=== PATIENT | female | born 1980 | race Caucasian/White ===

== ENCOUNTER 2016-11-05 19:40 | Emergency (ER) | payer MEDICAID, OTHER ==
--- NOTE | 2016-11-05 20:24 | EDM.PDOC ---
ED HPI GI/ABDOMINAL - General Chief Complaint: Abdominal Pain Stated Complaint: R SIDE PAIN/CHEST/VOMITING Time Seen by Provider: 11/05/16 20:24 Source of Information: Reports: Patient - History of Present Illness INITIAL COMMENTS - FREE TEXT/NARRATIVE: Patient with long history of GI illness, she has crohn's disease and chronic nausea. EGD and colonoscopy about 4-5 years ago. Here tonight with RUQ ' muscle spasm". She reports this is not similar to any pain she has on a chronic basis. She has had N/V for the past week. Her children had similar incidence but their's has since resolved. Also has a history of reported NH/coronary vessel dissection. - Related Data Allergies/ADRs: Allergies Allergy/AdvReac Type Severity Reaction Status Date / Time acetaminophen [From Tylenol] AdvReac Abdominal Verified 11/05/16 22:43 Cramps lorazepam [From Ativan] AdvReac Tachycardia Verified 11/05/16 22:43 ondansetron AdvReac Vomiting Verified 11/05/16 22:43 [From Zofran (as hydrochloride)] Sulfa (Sulfonamide AdvReac Diarrhea Verified 11/05/16 22:43 Antibiotics) sulfacetamide AdvReac Abdominal Verified 11/05/16 22:43 Pain Home Meds: Home Meds Clopidogrel [Plavix] 75 mg PO BEDTIME 09/12/16 [History] Aspirin [Ecotrin] 81 mg PO DAILY 11/05/16 [History] Past Medical History Cardiovascular History: Reports: NH, Other (see below) Other Cardiovascular History: Aortic dissection Respiratory History: Reports: Other (see below) Other Respiratory History: current smoker Gastrointestinal History: Reports: GERD 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: Endometrial ablation, Endometriosis Other OB/BYN History: tubes tied Psychiatric History: Reports: Anxiety, Depression - Past Surgical History Cardiovascular Surgical History: Reports: Coronary artery stent Female Surgical History: Reports: Tubal ligation, Other (see below) Other Female Surgeries/Procedures: ablasion Social & Family History - Family History Family Medical History: Noncontributory - Tobacco Use Smoking Status *Q: Current Every Day Smoker Years of Tobacco use: 20 Packs/Tins Daily: 0.2 Used Tobacco, but Quit: No - Caffeine Use Caffeine Use: Reports: None - Recreational Drug Use Recreational Drug Use: No ED ROS GENERAL - Review of Systems Review Of Systems: See Below Constitutional: Reports: weakness, fatigue, decreased appetite. Denies: fever, chills HEENT: Reports: No symptoms Respiratory: Denies: Shortness of Breath, Wheezing, Cough Cardiovascular: Denies: Chest pain, Blood pressure problem, Dyspnea on exertion , Edema, Lightheadedness GI/Abdominal: Reports: Abdominal pain, Decreased appetite, Nausea, Vomiting. Denies: Black stool, Bloody stool, Constipation, Diarrhea, Difficulty swallowing : Reports: no symptoms Musculoskeletal: Reports: no symptoms Skin: Reports: no symptoms Neurological: Reports: No Symptoms ED EXAM, GI/ABD - Physical Exam Exam: See Below Exam Limited By: No limitations General Appearance: alert, WD/WN, moderate distress Neck: normal inspection, non-tender Respiratory/Chest: no respiratory distress, lungs clear, normal breath sounds Cardiovascular: normal peripheral pulses, regular rate, rhythm, no murmur GI/Abdominal: normal bowel sounds, soft, tenderness (RUQ tenderness), Crawley's sign. No: McBurney's sign Neurological: alert, oriented Psychiatric: normal affect, normal mood Skin Exam: Warm, Dry, Intact Course - Vital Signs Last Recorded V/S: Last Vital Signs Temp 97.9 F 11/05/16 19:58 Pulse 94 11/05/16 19:58 Resp 20 11/05/16 19:58 BP 128/89 11/05/16 19:58 Pulse Ox 99 11/05/16 19:58 - Orders/Labs/Meds Labs: Laboratory Tests 11/05/16 11/05/16 11/05/16 Range/Units 20:50 20:50 22:10 WBC 9.14 (3.98-10.04) K/mm3 RBC 4.67 (3.98-5.22) M/mm3 Hgb 14.4 (11.2-15.7) gm/L Hct 43.7 (34.1-44.9) % MCV 93.6 (79.4-94.8) fl MCH 30.8 (25.6-32.2) pg MCHC 33.0 (32.2-35.5) g/dl RDW Std Deviation 44.9 (36.4-46.3) fL Plt Count 290 (182-369) K/mm3 MPV 9.7 (9.4-12.3) fl Neutrophils % (Manual) 69 H (40-60) % Band Neutrophils % 1 (0-10) % Lymphocytes % (Manual) 23 (20-40) % Atypical Lymphs % 0 % Monocytes % (Manual) 7 (2-10) % Eosinophils % (Manual) 0 L (0.7-5.8) % Basophils % (Manual) 0 L (0.1-1.2) Platelet Estimate Adequate RBC Morph Comment Normal Sodium 139 (136-145) mEq/L Potassium 3.8 (3.5-5.1) mEq/L Chloride 103 (98-107) mEq/L Carbon Dioxide 26 (21-32) mEq/L Anion Gap 13.8 (5-15) BUN 10 (7-18) mg/dL Creatinine 0.8 (0.55-1.02) mg/dL Est Cr Clr Drug Dosing TNP Estimated GFR (MDRD) > 60 (>60) mL/min BUN/Creatinine Ratio 12.5 L (14-18) Glucose 84 (74-106) mg/dL Calcium 9.3 (8.5-10.1) mg/dL Total Bilirubin 0.1 L (0.2-1.0) mg/dL AST 34 (15-37) U/L ALT 67 H (14-59) U/L Alkaline Phosphatase 82 (46-116) U/L C-Reactive Protein 1.7 H* (<1.0) mg/dL Total Protein 7.8 (6.4-8.2) g/dl Albumin 3.8 (3.4-5.0) g/dl Globulin 4.0 gm/dL Albumin/Globulin Ratio 1.0 (1-2) Lipase 255 (73-393) U/L Urine Color Yellow (Yellow) Urine Appearance Clear (Clear) Urine pH 7.5 (5.0-8.0) Ur Specific [place] 1.020 (1.005-1.030) Urine Protein Trace H (Negative) Urine Glucose (UA) Negative (Negative) Urine Ketones Negative (Negative) Urine Occult Blood Negative (Negative) Urine Nitrite Negative (Negative) Urine Bilirubin Negative (Negative) Urine Urobilinogen 0.2 (0.2-1.0) Ur Leukocyte Esterase Trace H (Negative) Urine RBC 0-5 (0-5) /hpf Urine WBC 5-10 H (0-5) /hpf Ur Squamous Epith Cells 5-10 H (0-5) /hpf Amorphous Sediment Moderate H (NOT SEEN) /hpf Urine Bacteria Few (FEW) /hpf Urine Mucus Not seen (FEW) /hpf Urine HCG, Qual (NEGATIVE) 11/05/16 Range/Units 22:11 WBC (3.98-10.04) K/mm3 RBC (3.98-5.22) M/mm3 Hgb (11.2-15.7) gm/L Hct (34.1-44.9) % MCV (79.4-94.8) fl MCH (25.6-32.2) pg MCHC (32.2-35.5) g/dl RDW Std Deviation (36.4-46.3) fL Plt Count (182-369) K/mm3 MPV (9.4-12.3) fl Neutrophils % (Manual) (40-60) % Band Neutrophils % (0-10) % Lymphocytes % (Manual) (20-40) % Atypical Lymphs % % Monocytes % (Manual) (2-10) % Eosinophils % (Manual) (0.7-5.8) % Basophils % (Manual) (0.1-1.2) Platelet Estimate RBC Morph Comment Sodium (136-145) mEq/L Potassium (3.5-5.1) mEq/L Chloride (98-107) mEq/L Carbon Dioxide (21-32) mEq/L Anion Gap (5-15) BUN (7-18) mg/dL Creatinine (0.55-1.02) mg/dL Est Cr Clr Drug Dosing Estimated GFR (MDRD) (>60) mL/min BUN/Creatinine Ratio (14-18) Glucose (74-106) mg/dL Calcium (8.5-10.1) mg/dL Total Bilirubin (0.2-1.0) mg/dL AST (15-37) U/L ALT (14-59) U/L Alkaline Phosphatase (46-116) U/L C-Reactive Protein (<1.0) mg/dL Total Protein (6.4-8.2) g/dl Albumin (3.4-5.0) g/dl Globulin gm/dL Albumin/Globulin Ratio (1-2) Lipase (73-393) U/L Urine Color (Yellow) Urine Appearance (Clear) Urine pH (5.0-8.0) Ur Specific [place] (1.005-1.030) Urine Protein (Negative) Urine Glucose (UA) (Negative) Urine Ketones (Negative) Urine Occult Blood (Negative) Urine Nitrite (Negative) Urine Bilirubin (Negative) Urine Urobilinogen (0.2-1.0) Ur Leukocyte Esterase (Negative) Urine RBC (0-5) /hpf Urine WBC (0-5) /hpf Ur Squamous Epith Cells (0-5) /hpf Amorphous Sediment (NOT SEEN) /hpf Urine Bacteria (FEW) /hpf Urine Mucus (FEW) /hpf Urine HCG, Qual Negative (NEGATIVE) Meds: Medications Discontinued Medications Generic Name Dose Route Start Last Admin Trade Name Freq PRN Reason Stop Dose Admin Hydromorphone HCl 0.5 mg 11/05/16 20:35 11/05/16 21:01 Dilaudid IVPUSH 11/05/16 20:36 0.5 mg ONETIME ONE Administration Hydromorphone HCl 0.5 mg 11/05/16 22:11 11/05/16 22:18 Dilaudid IVPUSH 11/05/16 22:12 0.5 mg ONETIME ONE Administration Sodium Chloride 1,000 mls @ 999 mls/hr 11/05/16 20:35 11/05/16 20:55 Normal Saline IV 11/05/16 21:35 999 mls/hr ONETIME ONE Administration Ondansetron HCl 4 mg 11/05/16 20:35 11/05/16 20:58 Zofran IVPUSH 11/05/16 20:36 4 mg ONETIME ONE Administration Ondansetron HCl 4 mg 11/05/16 22:44 Zofran IVPUSH 11/05/16 22:45 ONETIME ONE - Re-Assessments/Exams Free Text/Narrative Re-Assessment/Exam: Patient's symptoms significantly improved with Dilaudid, Zofran and IV fluids. 11/05/16 21:41 WBC9,140 and CRP 1.7. ALT mildly elevated at 67. Hcg negative. 11/05/16 22:08 Patient's pain and nausea much improved, not acute abdomen. With cautiously provide limited quantity of oxycodone for pain as patient has a history of abuse. She does have Rx for Zofran at home. There was some question about her tolerating IV zofran and it causing nausea in the past, it did relieve her nausea today. She will need further work-up and likely RUQ US on an outpatient basis, did provider her with numbers to local clinics. She may certainly return to ER if symptoms should worsen, not tolerating PO fluids or fever > 101 F. 11/05/16 22:46 Departure - Departure Time of Disposition: 22:44 Disposition: Home, Self-Care 01 Condition: good Clinical Impression: Abdominal pain Qualifiers: Abdominal location: right upper quadrant Qualified Code(s): R10.11 - Right upper quadrant pain Instructions: Abdominal Pain, Adult, [id number] Referrals: PCP,None [Primary Care Provider] - Forms: ED Department Discharge Additional Instructions: Maximize oral fluids, Zofran as needed. [place] diet, No fatty/fried foods. Call [phone] ([place]) or [phone] ([facility]) Tuesday morning to schedule a follow-up and establish care in the clinic and for further work-up or certainly return to ER if needed.
[2016-11-05] MEDS ORDERED: Sodium Chloride 0.9% 1,000 ML IV ONE (20:35)
[2016-11-05] MEDS ORDERED: Ondansetron 4 MG/2 ML SDV IVPUSH ONE ×2 (20:35→22:44)
[2016-11-05] MEDS ORDERED: HYDROmorphone 0.5 MG/0.5 ML Syringe IVPUSH ONE ×2 (20:35→22:11)
[2016-11-05] MEDS: traMADol 50 MG Tab ONE (23:30)
[2016-11-06] MEDS: traMADol 50 MG Tab ONE (02:08)
[2016-11-06 02:16] VITALS: BP 108/75
== END 2016-11-05 23:15 | disposition home or self-care (01) ==
LOC: JD.ED 19:40
DX: R10.11 Right upper quadrant pain (principal); Z95.5 Presence of coronary angioplasty implant and graft; Z98.890 Other specified postprocedural states; Z79.82 Long term (current) use of aspirin; F17.210 Nicotine dependence, cigarettes, uncomplicated; Z88.2 Allergy status to sulfonamides; Z88.6 Allergy status to analgesic agent; Z88.8 Allergy status to other drugs, medicaments and biological substances
CPT/HCPCS: 36415; 80053; 81001; 81025; 83690; 85025; 86140; 96361; 96374; 96375; 96376; 99285; A9270; J1170; J2405; J7040; 99284

== ENCOUNTER 2016-11-08 20:09 | Emergency (ER) | payer MEDICAID ==
[2016-11-08 20:31] VITALS: BP 137/100
[2016-11-08] MEDS ORDERED: HYDROmorphone 1 MG/ML Syringe IVPUSH ONE (21:49)
[2016-11-08] MEDS ORDERED: Ondansetron 4 MG/2 ML SDV IVPUSH ONE (21:49)
--- NOTE | 2016-11-08 21:58 | EDM.PDOC ---
ED HPI GI/ABDOMINAL - General Chief Complaint: Abdominal Pain Stated Complaint: AB PAIN Time Seen by Provider: 11/08/16 21:22 Source of Information: Reports: Patient, Old records, RN notes reviewed History Limitations: Reports: No limitations - History of Present Illness INITIAL COMMENTS - FREE TEXT/NARRATIVE: The patient states that she has had nausea, vomiting, and right upper quarter pain for about a week. She was seen at this ED 11/05/2016, where blood work and a urinalysis were unremarkable. The suspicion was that the patient was suffering from biliary colic. She was prescribed Zofran and oxycodone, and referred to a surgeon, however, she has not followed up, stating insurance concerns. She states that today her pain is worse than it was 2 days ago. She is still vomiting, despite Zofran. She denies fever or urinary symptoms. She states that she has been having similar symptoms on and off over the past year, but had not had a medical evaluation prior to 11/05/2016 - Related Data Allergies/ADRs: Allergies Allergy/AdvReac Type Severity Reaction Status Date / Time acetaminophen [From Tylenol] AdvReac Abdominal Verified 11/08/16 20:26 Cramps lorazepam [From Ativan] AdvReac Tachycardia Verified 11/08/16 20:26 ondansetron AdvReac Vomiting Verified 11/08/16 20:26 [From Zofran (as hydrochloride)] Sulfa (Sulfonamide AdvReac Diarrhea Verified 11/08/16 20:26 Antibiotics) sulfacetamide AdvReac Abdominal Verified 11/08/16 20:26 Pain Home Meds: Home Meds Clopidogrel [Plavix] 75 mg PO BEDTIME 09/12/16 [History] Aspirin [Ecotrin] 81 mg PO DAILY 11/05/16 [History] oxyCODONE 5 mg PO ONETIME #1 tablet 11/05/16 [Rx] traMADol [Ultram] 50 mg PO ONETIME PRN #1 tablet 11/05/16 [Rx] Ondansetron [Zofran ODT] 1 tab PO Q8H PRN #10 tab.dis 11/09/16 [Rx] Past Medical History Cardiovascular History: Reports: CAD (LCx dissection 02/18/2016), High cholesterol (Untreated), Hypertension (Untreated), [place] Gastrointestinal History: Reports: GERD, Inflammatory bowel disease (Crohn disease, untreated) 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: Endometriosis Other OB/BYN History: tubes tied Psychiatric History: Reports: ADD, Anxiety, Depression - Past Surgical History HEENT Surgical History: Reports: 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) Cardiovascular Surgical History: Reports: Coronary artery stent (LCx 02/18/2016) GI Surgical History: Reports: Colonoscopy (x 2), EGD (x 2 or 3), Other (see below) (Exploratory laparotomy w/ ALEX x 3) Female Surgical History: Reports: section (x 2), D&C (x 3), Endometrial ablation, Tubal ligation Social & Family History - Family History Family Medical History: Noncontributory - Tobacco Use Smoking Status *Q: Current Every Day Smoker Years of Tobacco use: 20 Packs/Tins Daily: 0.2 - Caffeine Use Caffeine Use: Reports: None - Alcohol Use Alcohol Use History: Yes Alcohol Use Frequency: Socially - Recreational Drug Use Recreational Drug Use: No - Living Situation & Occupation Living situation: Reports: single, with family (2 kids) Occupation: unemployed ED ROS GENERAL - Review of Systems Review Of Systems: See Below Constitutional: Reports: no symptoms HEENT: Reports: No symptoms Respiratory: Reports: No Symptoms Cardiovascular: Reports: No symptoms Endocrine: Reports: no symptoms GI/Abdominal: Reports: Abdominal pain (as per the HPI), Nausea (as per the HPI) , Vomiting (as per the HPI) : Reports: no symptoms Musculoskeletal: Reports: no symptoms Skin: Reports: no symptoms Neurological: Reports: No Symptoms Psychiatric: Reports: No symptoms Hematologic/Lymphatic: Reports: no symptoms Immunologic: Reports: no symptoms ED EXAM, GI/ABD - Physical Exam Exam: See Below Exam Limited By: No limitations General Appearance: alert, WD/WN, mild distress (Appears uncomfortable) Eyes: bilateral: normal appearance, EOMI Ears: normal external exam, hearing grossly normal Nose: normal inspection, no blood Throat/Mouth: Normal inspection, Normal lips, Normal voice, No airway compromise Head: atraumatic, normocephalic Neck: normal inspection, full range of motion Respiratory/Chest: no respiratory distress, lungs clear, normal breath sounds, no accessory muscle use, chest non-tender Cardiovascular: normal peripheral pulses, regular rate, rhythm, no edema, no gallop, no JVD, no murmur, no rub GI/Abdominal: normal bowel sounds, soft, no organomegaly, no distention, no abnormal bruit, no mass, tenderness (Right upper quadrant only. Essentially nontender elsewhere.), Crawley's sign, other (Obese) Back Exam: normal inspection, full range of motion. No: CVA tenderness (L), CVA tenderness (R) Extremities: normal inspection, normal range of motion, non-tender, normal capillary refill Neurological: alert, oriented, normal cognition, no motor/sensory deficits Psychiatric: normal affect Skin Exam: Warm, Dry, Intact, Normal color, No rash Lymphatic: no adenopathy Course - Vital Signs Last Recorded V/S: Last Vital Signs Temp 35.8 C 11/08/16 20:26 Pulse 108 H 11/08/16 20:26 Resp 18 11/08/16 20:26 BP 137/100 H 11/08/16 20:26 Pulse Ox 96 11/08/16 20:26 - Orders/Labs/Meds Labs: Laboratory Tests 11/08/16 11/08/16 Range/Units 20:30 20:30 WBC 9.92 (3.98-10.04) K/mm3 RBC 4.68 (3.98-5.22) M/mm3 Hgb 14.3 (11.2-15.7) gm/L Hct 43.6 (34.1-44.9) % MCV 93.2 (79.4-94.8) fl MCH 30.6 (25.6-32.2) pg MCHC 32.8 (32.2-35.5) g/dl RDW Std Deviation 44.8 (36.4-46.3) fL Plt Count 357 (182-369) K/mm3 MPV 9.7 (9.4-12.3) fl Neutrophils % (Manual) 66 H (40-60) % Band Neutrophils % 1 (0-10) % Lymphocytes % (Manual) 28 (20-40) % Atypical Lymphs % 0 % Monocytes % (Manual) 2 (2-10) % Eosinophils % (Manual) 2 (0.7-5.8) % Basophils % (Manual) 1 (0.1-1.2) Platelet Estimate Adequate RBC Morph Comment Normal Sodium 138 (136-145) mEq/L Potassium 3.8 (3.5-5.1) mEq/L Chloride 101 (98-107) mEq/L Carbon Dioxide 24 (21-32) mEq/L Anion Gap 16.8 H (5-15) BUN 12 (7-18) mg/dL Creatinine 1.0 (0.55-1.02) mg/dL Est Cr Clr Drug Dosing TNP Estimated GFR (MDRD) > 60 (>60) mL/min BUN/Creatinine Ratio 12.0 L (14-18) Glucose 115 H (74-106) mg/dL Calcium 9.5 (8.5-10.1) mg/dL Total Bilirubin 0.3 (0.2-1.0) mg/dL AST 25 (15-37) U/L ALT 59 (14-59) U/L Alkaline Phosphatase 86 (46-116) U/L Total Protein 7.6 (6.4-8.2) g/dl Albumin 4.1 (3.4-5.0) g/dl Globulin 3.5 gm/dL Albumin/Globulin Ratio 1.2 (1-2) Lipase 246 (73-393) U/L Meds: Medications Discontinued Medications Generic Name Dose Route Start Last Admin Trade Name Freq PRN Reason Stop Dose Admin Hydromorphone HCl 1 mg 11/08/16 21:49 11/08/16 22:20 Dilaudid IVPUSH 11/08/16 21:50 1 mg ONETIME ONE Administration Hydromorphone HCl 1 mg 11/09/16 00:15 11/09/16 00:19 Dilaudid IVPUSH 11/09/16 00:16 1 mg ONETIME ONE Administration Sodium Chloride 1,000 mls @ 150 mls/hr 11/08/16 22:00 11/08/16 22:17 Normal Saline IV 150 mls/hr ASDIRECTED ALEXEI Administration Ondansetron HCl 4 mg 11/08/16 21:49 11/08/16 22:18 Zofran IVPUSH 11/08/16 21:50 4 mg ONETIME ONE Administration - Radiology Interpretation Free Text/Narrative:: CT of the abdomen and pelvis with oral and IV contrast is read by [facility] as "possible wall thickening involving the second portion of the duodenum which may represent a duodenitis." - Re-Assessments/Exams Free Text/Narrative Re-Assessment/Exam: 11/09/16 00:16 The patient is requesting additional pain medication, telling the nurse that she will not go to CT scan without it. The patient has prior documented diagnoses of prescription drug abuse and narcotic abuse. Telling the nurse that she will not go to CT scan without a narcotic is concerning, however, I found the patient's pain credible when I initially evaluated her, so I have ordered a second dose of Dilaudid. I do not intend, however, to prescribe additional narcotics without evidence of a painful process. 11/09/16 01:34 Test results discussed with the patient. Today's workup is unremarkable, with the exception of the CT scan indicating distal duodenitis, however, I don't believe that duodenitis would be responsible for the patient's abdominal pain and tenderness. I suspect that she has biliary colic, and I explained that proving it can be difficult. For today's purposes, I will e-prescribe Zofran, and I will refer her to Dr. Coles for further evaluation. Departure - Departure Time of Disposition: 01:35 Disposition: Home, Self-Care 01 Condition: fair Clinical Impression: Abdominal pain of unknown etiology Prescriptions: Ondansetron [Zofran ODT] 1 tab PO Q8H PRN #10 tab.dis PRN Reason: Nausea/Vomiting Instructions: Abdominal Pain, Adult, [id number] Referrals: PCP,None [Primary Care Provider] - Lenin Coles MD [Physician] - Forms: ED Department Discharge Additional Instructions: You were seen in the emergency room today for continued upper right abdominal pain, nausea, and vomiting. Workup in the ER included blood work and a CT scan of her abdomen and pelvis. Your entire workup was normal, and does not explain the cause of your symptoms. Dissolve one tablet of the anti-nausea meds and Zofran on your tongue up to every 8 hours, as needed for nausea/vomiting. Eat a low fat, low grease, low oil diet. Eating fat/oil/grease may cause abdominal pain. Followup with the Surgeon Dr. Lenin Coles at the next available appointment, for further evaluation. If any other problems, please do not hesitate to return to the ER.
[2016-11-08] MEDS ORDERED: Sodium Chloride 0.9% 1,000 ML IV SCH (22:00)
[2016-11-09] MEDS ORDERED: HYDROmorphone 1 MG/ML Syringe IVPUSH ONE (00:15)
--- NOTE | 2016-11-09 09:41 | CT ---
CT abdomen and pelvis Technique: Multiple axial sections were obtained from above the dome of the diaphragm inferiorly through the pubic symphysis. Intravenous and oral contrast has been given. Delayed images were also obtained through the bladder. Comparison: No previous abdominal imaging is available. Findings: Visualized lung bases are clear. Liver shows fatty infiltration. No focal abnormality identified within the liver. Gallbladder shows no calcified gallstones. Spleen appears within normal limits. Slight wall thickening within the duodenum is seen. Uncertain if this is real or due to lack of distention. Adrenal glands show no nodule. Pancreas is within normal limits. Multiple small cysts are seen within both kidneys. Kidneys symmetrically enhance without discrete solid abnormality. No hydronephrosis is seen. Aorta and iliac vessels show minimal atherosclerotic calcification. No aneurysm is seen. Appendix is seen which appears normal. Incidental sterilization clips seen within the pelvis. No pelvic mass or adenopathy is seen. No free fluid is seen. Delayed images show contrast within the distal ureters and within the bladder. Bone window settings were reviewed which appear within normal limits for the patient's age. Incidental note of small fat containing umbilical hernia. Impression: 1. Equivocal wall thickening within the duodenum. 2. Multiple renal cysts. 3. Other incidental findings. Nothing acute identified on CT study of the abdomen and pelvis. Diagnostic code #2 Agree with preliminary report issued by [facility] (preliminary [facility] report dictated on 11/09/16, 2:10 AM Central Time)
== END 2016-11-09 01:50 | disposition home or self-care (01) ==
LOC: JD.ED 20:09
DX: R10.11 Right upper quadrant pain (principal); I10 Essential (primary) hypertension; I25.2 Old myocardial infarction; I25.10 Atherosclerotic heart disease of native coronary artery without angina pectoris; E78.00 Pure hypercholesterolemia, unspecified; K21.9 Gastro-esophageal reflux disease without esophagitis; F41.9 Anxiety disorder, unspecified; F17.210 Nicotine dependence, cigarettes, uncomplicated; Z95.5 Presence of coronary angioplasty implant and graft; Z98.890 Other specified postprocedural states; Z79.82 Long term (current) use of aspirin; Z88.2 Allergy status to sulfonamides; Z88.6 Allergy status to analgesic agent; Z88.8 Allergy status to other drugs, medicaments and biological substances
CPT/HCPCS: 36415; 74177; 80053; 83690; 85025; 96361; 96374; 96375; 96376; 99284; J1170; J2405; J7040

== ENCOUNTER 2016-11-10 13:54 | Emergency (ER) | payer MEDICAID ==
[2016-11-10 14:27] VITALS: BP 109/87
[2016-11-10] MEDS ORDERED: Sodium Chloride 0.9% 1,000 ML IV ONE (16:01)
[2016-11-10] MEDS ORDERED: HYDROmorphone 1 MG/ML Syringe IVPUSH ONE (16:01)
--- NOTE | 2016-11-10 17:17 | EDM.PDOC ---
ED HPI GI/ABDOMINAL - General Chief Complaint: Abdominal Pain Stated Complaint: ABDOMINAL PAIN/VOMITING Time Seen by Provider: 11/10/16 17:12 Source of Information: Reports: Patient, Old records (recent ER visits) History Limitations: Reports: No limitations - History of Present Illness INITIAL COMMENTS - FREE TEXT/NARRATIVE: Patient presents for evaluation and treatment of epigastric and right upper quadrant abdominal pain. Patient reports that she has been experiencing this pain for the last 2 weeks. She describes the pain as a "muscle spasm". She states over the last 2 days has increased in severity and has been constant. Patient reports associated symptoms of chills and vomiting. She reports that she vomited 4 days over the last 2 weeks. Patient reports that she has not been eating much due to the discomfort. Patient reports that her last bowel movement was today. She denies any fevers, nausea, urinary symptoms, melena or hematochezia. She became concerned today when she noticed swollen lymph nodes to her neck. This prompted her ER visit today. Patient states the lymph nodes to her neck are tender. Patient has been seen in our [facility] 2 other occasions last week for the right upper quadrant abdominal pain. Most recent visit included a CT of the abdomen and pelvis which only showed duodenitis. She was instructed to follow up with surgery. She states that she has an appointment with surgery tomorrow around 1 PM. Location: [facility] - Related Data Allergies/ADRs: Allergies Allergy/AdvReac Type Severity Reaction Status Date / Time acetaminophen [From Tylenol] AdvReac Abdominal Verified 11/08/16 20:26 Cramps lorazepam [From Ativan] AdvReac Tachycardia Verified 11/08/16 20:26 Sulfa (Sulfonamide AdvReac Diarrhea Verified 11/08/16 20:26 Antibiotics) sulfacetamide AdvReac Abdominal Verified 11/08/16 20:26 Pain Home Meds: Home Meds Clopidogrel [Plavix] 75 mg PO BEDTIME 09/12/16 [History] Aspirin [Ecotrin] 81 mg PO DAILY 11/05/16 [History] oxyCODONE 5 mg PO ONETIME #1 tablet 11/05/16 [Rx] traMADol [Ultram] 50 mg PO ONETIME PRN #1 tablet 11/05/16 [Rx] Ondansetron [Zofran ODT] 1 tab PO Q8H PRN #10 tab.dis 11/09/16 [Rx] ALPRAZolam [Xanax] 1 mg PO BEDTIME #5 tablet 11/10/16 [Rx] Past Medical History Cardiovascular History: Reports: CAD, High cholesterol, Hypertension, [place] Other Cardiovascular History: aortic dissection Gastrointestinal History: Reports: GERD, Inflammatory bowel disease 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: Endometriosis Other OB/BYN History: tubes tied Psychiatric History: Reports: ADD, Anxiety, Depression - Past Surgical History HEENT Surgical History: Reports: Eye surgery Cardiovascular Surgical History: Reports: Coronary artery stent GI Surgical History: Reports: Colonoscopy, EGD Social & Family History - Family History Family Medical History: Noncontributory - Tobacco Use Smoking Status *Q: Current Some Day Smoker Years of Tobacco use: 20 Packs/Tins Daily: 0.1 Used Tobacco, but Quit: No - Caffeine Use Caffeine Use: Reports: Coffee - Recreational Drug Use Recreational Drug Use: No - Living Situation & Occupation Living situation: Reports: single, with family (2 kids) Occupation: unemployed ED ROS GENERAL - Review of Systems Review Of Systems: See Below Constitutional: Reports: chills, malaise, fatigue, decreased appetite. Denies: fever GI/Abdominal: Reports: Abdominal pain, Nausea, Vomiting. Denies: Bloody stool, Hematochezia, Melena : Reports: no symptoms ED EXAM, GI/ABD - Physical Exam Exam: See Below Exam Limited By: No limitations General Appearance: alert, WD/WN, no apparent distress, mild distress, obese Respiratory/Chest: no respiratory distress, lungs clear, normal breath sounds Cardiovascular: normal peripheral pulses, regular rate, rhythm, no murmur GI/Abdominal: normal bowel sounds, soft, tenderness, guarding, Crawley's sign. No: rebound, McBurney's sign Neurological: alert, oriented, normal cognition Psychiatric: normal affect, normal mood Skin Exam: Warm, Dry, Normal color Course - Vital Signs Last Recorded V/S: Last Vital Signs Temp 36.4 C 11/10/16 14:21 Pulse 88 11/10/16 18:56 Resp 16 11/10/16 18:56 BP 109/87 11/10/16 14:21 Pulse Ox 98 11/10/16 18:56 - Orders/Labs/Meds Labs: Laboratory Tests 11/10/16 11/10/16 11/10/16 Range/Units 16:25 16:25 16:25 WBC 8.39 (3.98-10.04) K/mm3 RBC 4.43 (3.98-5.22) M/mm3 Hgb 13.7 (11.2-15.7) gm/L Hct 41.6 (34.1-44.9) % MCV 93.9 (79.4-94.8) fl MCH 30.9 (25.6-32.2) pg MCHC 32.9 (32.2-35.5) g/dl RDW Std Deviation 44.7 (36.4-46.3) fL Plt Count 323 (182-369) K/mm3 MPV 9.3 L (9.4-12.3) fl Neut % (Auto) 65.1 (34.0-71.1) % Lymph % (Auto) 21.7 (19.3-51.7) % Person % (Auto) 7.7 (4.7-12.5) % Eos % (Auto) 3.6 (0.7-5.8) Baso % (Auto) 0.8 (0.1-1.2) % Neut # (Auto) 5.46 (1.56-6.13) K/mm3 Lymph # (Auto) 1.82 (1.18-3.74) K/mm3 Person # (Auto) 0.65 H (0.24-0.36) K/mm3 Eos # (Auto) 0.30 (0.04-0.36) K/mm3 Baso # (Auto) 0.07 (0.01-0.08) K/mm3 Sodium 140 (136-145) mEq/L Potassium 4.2 (3.5-5.1) mEq/L Chloride 106 (98-107) mEq/L Carbon Dioxide 24 (21-32) mEq/L Anion Gap 14.2 (5-15) BUN 10 (7-18) mg/dL Creatinine 0.9 (0.55-1.02) mg/dL Est Cr Clr Drug Dosing TNP Estimated GFR (MDRD) > 60 (>60) mL/min BUN/Creatinine Ratio 11.1 L (14-18) Glucose 112 H (74-106) mg/dL Calcium 9.8 (8.5-10.1) mg/dL Total Bilirubin 0.1 L (0.2-1.0) mg/dL AST 34 (15-37) U/L ALT 59 (14-59) U/L Alkaline Phosphatase 74 (46-116) U/L C-Reactive Protein 1.7 H* (<1.0) mg/dL Total Protein 7.1 (6.4-8.2) g/dl Albumin 3.9 (3.4-5.0) g/dl Globulin 3.2 gm/dL Albumin/Globulin Ratio 1.2 (1-2) Lipase 239 (73-393) U/L Urine Color (Yellow) Urine Appearance (Clear) Urine pH (5.0-8.0) Ur Specific [place] (1.005-1.030) Urine Protein (Negative) Urine Glucose (UA) (Negative) Urine Ketones (Negative) Urine Occult Blood (Negative) Urine Nitrite (Negative) Urine Bilirubin (Negative) Urine Urobilinogen (0.2-1.0) Ur Leukocyte Esterase (Negative) Urine RBC (0-5) /hpf Urine WBC (0-5) /hpf Ur Squamous Epith Cells (0-5) /hpf Amorphous Sediment (NOT SEEN) /hpf Urine Bacteria (FEW) /hpf Urine Mucus (FEW) /hpf 11/10/ Range/Units 17:35 WBC (3.98-10.04) K/mm3 RBC (3.98-5.22) M/mm3 Hgb (11.2-15.7) gm/L Hct (34.1-44.9) % MCV (79.4-94.8) fl MCH (25.6-32.2) pg MCHC (32.2-35.5) g/dl RDW Std Deviation (36.4-46.3) fL Plt Count (182-369) K/mm3 MPV (9.4-12.3) fl Neut % (Auto) (34.0-71.1) % Lymph % (Auto) (19.3-51.7) % Person % (Auto) (4.7-12.5) % Eos % (Auto) (0.7-5.8) Baso % (Auto) (0.1-1.2) % Neut # (Auto) (1.56-6.13) K/mm3 Lymph # (Auto) (1.18-3.74) K/mm3 Person # (Auto) (0.24-0.36) K/mm3 Eos # (Auto) (0.04-0.36) K/mm3 Baso # (Auto) (0.01-0.08) K/mm3 Sodium (136-145) mEq/L Potassium (3.5-5.1) mEq/L Chloride (98-107) mEq/L Carbon Dioxide (21-32) mEq/L Anion Gap (5-15) BUN (7-18) mg/dL Creatinine (0.55-1.02) mg/dL Est Cr Clr Drug Dosing Estimated GFR (MDRD) (>60) mL/min BUN/Creatinine Ratio (14-18) Glucose (74-106) mg/dL Calcium (8.5-10.1) mg/dL Total Bilirubin (0.2-1.0) mg/dL AST (15-37) U/L ALT (14-59) U/L Alkaline Phosphatase (46-116) U/L C-Reactive Protein (<1.0) mg/dL Total Protein (6.4-8.2) g/dl Albumin (3.4-5.0) g/dl Globulin gm/dL Albumin/Globulin Ratio (1-2) Lipase (73-393) U/L Urine Color Yellow (Yellow) Urine Appearance Cloudy H (Clear) Urine pH 7.5 (5.0-8.0) Ur Specific [place] 1.025 (1.005-1.030) Urine Protein Negative (Negative) Urine Glucose (UA) Negative (Negative) Urine Ketones Negative (Negative) Urine Occult Blood Negative (Negative) Urine Nitrite Negative (Negative) Urine Bilirubin Negative (Negative) Urine Urobilinogen 0.2 (0.2-1.0) Ur Leukocyte Esterase Negative (Negative) Urine RBC 0-5 (0-5) /hpf Urine WBC 0-5 (0-5) /hpf Ur Squamous Epith Cells 5-10 H (0-5) /hpf Amorphous Sediment Many H (NOT SEEN) /hpf Urine Bacteria Moderate H (FEW) /hpf Urine Mucus Not seen (FEW) /hpf Meds: Medications Discontinued Medications Generic Name Dose Route Start Last Admin Trade Name Freq PRN Reason Stop Dose Admin Hydromorphone HCl 1 mg 11/10/16 16:01 11/10/16 16:31 Dilaudid IVPUSH 11/10/16 16:02 1 mg ONETIME ONE Administration Hydromorphone HCl 0.5 mg 11/10/16 17:39 11/10/16 17:46 Dilaudid IVPUSH 11/10/16 17:40 0.5 mg ONETIME ONE Administration Sodium Chloride 1,000 mls @ 999 mls/hr 11/10/16 16:01 11/10/16 16:30 Normal Saline IV 11/10/16 17:01 999 mls/hr ONETIME ONE Administration - Re-Assessments/Exams Free Text/Narrative Re-Assessment/Exam: 11/10/16 17:57 Patient reports good pain relief with the 1mg Dilaudid. Pain is returning will give an additional 0.5mg dilaudid. Labs returned. WBC is 8.39, hgb is 13.7 and plts are 323 Sodium is 140, potassium is 4.2 and chloride is 106. Glucose is 112 lipase is 239 CRP is 1.7 - patient has been around this level during previous visits. I feel the patient likely needs an ultrasound and HIDA scan. These should be done outpatient. She has an appointment with surgery tomorrow. Plan to see surgery for evaluation. 11/10/16 18:10 Ua has 3+ blood and 1+ protein. Moderate bacteria, negative for nitrites and leuks. Pain improved. Requests medication to help sleep. Pt is allergic to ativan. Has taken xanax in the past. Will give a small rx of xanax to help with sleep. Discharge instructions as documented. Departure - Departure Time of Disposition: 18:18 Disposition: Home, Self-Care 01 Condition: fair Clinical Impression: Abdominal pain of unknown etiology Prescriptions: ALPRAZolam [Xanax] 1 mg PO BEDTIME #5 tablet Instructions: Abdominal Pain, Adult, [id number] Referrals: PCP,None [Primary Care Provider] - Lenin Coles MD [Physician] - Forms: ED Department Discharge Additional Instructions: Take the Xanax as prescribed. One tab by mouth at hour of sleep. Followup with Dr. Coles tomorrow as planned. clear liquid. may try a bland diet. [place] diet recommendations include bread, rice, applesauce, toast, egg whites, crackers, bananas, et cetera. Avoid high fatty foods. Return to ER should your symptoms change or worsen.
[2016-11-10] MEDS ORDERED: HYDROmorphone 0.5 MG/0.5 ML Syringe IVPUSH ONE (17:39)
== END 2016-11-10 18:30 | disposition home or self-care (01) ==
LOC: JD.ED 13:54
DX: R10.11 Right upper quadrant pain (principal); Z88.2 Allergy status to sulfonamides; Z88.8 Allergy status to other drugs, medicaments and biological substances; Z79.82 Long term (current) use of aspirin; Z79.899 Other long term (current) drug therapy; I25.10 Atherosclerotic heart disease of native coronary artery without angina pectoris; I10 Essential (primary) hypertension; E78.00 Pure hypercholesterolemia, unspecified; K21.9 Gastro-esophageal reflux disease without esophagitis; F32.9 Major depressive disorder, single episode, unspecified; F41.9 Anxiety disorder, unspecified; I25.2 Old myocardial infarction; Z95.5 Presence of coronary angioplasty implant and graft; F17.200 Nicotine dependence, unspecified, uncomplicated
CPT/HCPCS: 36415; 80053; 81001; 83690; 85025; 86140; 96361; 96374; 96376; 99284; J1170; J7040

== ENCOUNTER 2016-12-16 11:09 | Emergency (ER) | payer MEDICAID ==
[2016-12-16] MEDS ORDERED: Sodium Chloride 0.9% 1,000 ML IV ONE (11:50)
[2016-12-16] MEDS ORDERED: HYDROmorphone 1 MG/ML Syringe IVPUSH ONE ×2 (11:50→14:25)
[2016-12-16] MEDS ORDERED: Ondansetron 4 MG Tab.DIS PO ONE (11:50)
[2016-12-16] MEDS ORDERED: Sodium Chloride 0.9% 10 ML Syringe FLUSH PRN (11:50)
--- NOTE | 2016-12-16 12:05 | EDM.PDOC ---
ED HPI GI/ABDOMINAL - General Chief Complaint: Abdominal Pain Stated Complaint: Abdominal pain Time Seen by Provider: 12/16/16 11:35 Source of Information: Reports: Patient, Old records (Obtained from the clinic) , RN notes reviewed History Limitations: Reports: No limitations - History of Present Illness INITIAL COMMENTS - FREE TEXT/NARRATIVE: 36 year old female presents to the ED with sharp, stabbing, intermittent epigastric abdominal pain. The pain radiates across her upper abdomen and occasionally into her back. She has associated nausea and vomiting. Emesis x1 today. She has zofran at home but is not taking it because "I have trouble swallowing pills." She reports occasional red blood in her emesis. This does not occur every time she vomits. She denies syncope, lightheadedness, or dizziness. She has not taken anything for pain at home. She had 1 loose stool today. No black or bloody stools. She feels as though everything she eats goes "right through her." She denies worsening of pain with certain foods. She occasionally drinks coffee and alcohol but on a daily basis. She does not consume caffeine on a daily basis. She has had nothing to eat or drink today except for oral contrast for CT scan. She does smoke cigarettes. This not a new problem. The patient has been struggling with this intermittent abdominal pain for approximately 2 months. She has been symptom free for nearly a month until yesterday. She saw her PCP Nancy MINOR in the clinic yesterday. An outpatient CT scan was ordered and performed this morning. Upon completion of the CT, the patient presented to the ED due to worsening pain. I reviewed her old records. She has had a very thorough workup as an outpatient. On 11/16/16 she has a RUQ abdominal ultrasound which was normal except for fatty liver infiltration. She was referred to General Surgeon Dr. Coles who ordered a HIDA scan. This was also normal. Her CT scan from today is unremarkable for acute findings. She has fatty infiltration of the liver but no acute findings to explain her symptoms. She says her last EGD was 5 or 6 years ago. She is not on any medications for her epigastric pain other than oral zofran. She has zofran listed as an allergy. She says she is unable to have zofran IV but tolerates oral zofran. She denies known history of H Pylori. Previous abdominal surgeries include c-sections x2, D&C x2, "scar removal" of intra-abdominal adhesions,tubal ligation, and uterine ablasion. I asked if she has any history of bowel obstruction and she says no. She does have history of STEMI and cardiac stents. She does not take NSAIDs due to her cardiac history and say Tylenol causes her to have severe stomach cramps. - Related Data Allergies/ADRs: Allergies Allergy/AdvReac Type Severity Reaction Status Date / Time ondansetron Allergy Cannot Verified 12/16/16 11:14 Remember acetaminophen [From Tylenol] AdvReac Abdominal Verified 12/16/16 11:14 Cramps lorazepam [From Ativan] AdvReac Tachycardia Verified 12/16/16 11:14 Sulfa (Sulfonamide AdvReac Diarrhea Verified 12/16/16 11:14 Antibiotics) sulfacetamide AdvReac Abdominal Verified 12/16/16 11:14 Pain Home Meds: Home Meds Clopidogrel [Plavix] 75 mg PO BEDTIME 09/12/16 [History] Aspirin [Ecotrin] 81 mg PO DAILY 11/05/16 [History] oxyCODONE 5 mg PO ONETIME #1 tablet 11/05/16 [Rx] Ondansetron [Zofran ODT] 1 tab PO Q8H PRN #10 tab.dis 11/09/16 [Rx] ALPRAZolam [Xanax] 1 mg PO BID 12/16/16 [History] oxyCODONE 5 mg PO TID PRN #10 tablet 12/16/16 [Rx] Past Medical History Cardiovascular History: Reports: CAD, High cholesterol, Hypertension, [place] Other Cardiovascular History: aortic dissection Gastrointestinal History: Reports: GERD, Inflammatory bowel disease 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: Endometriosis Other OB/BYN History: tubes tied Psychiatric History: Reports: ADD, Anxiety, Depression, PTSD - Past Surgical History HEENT Surgical History: Reports: Eye surgery Cardiovascular Surgical History: Reports: Coronary artery stent GI Surgical History: Reports: Colonoscopy, EGD Social & Family History - Family History Family Medical History: Noncontributory - Tobacco Use Smoking Status *Q: Current Every Day Smoker Years of Tobacco use: 15 Packs/Tins Daily: 0.2 Used Tobacco, but Quit: No - Caffeine Use Caffeine Use: Reports: Coffee - Recreational Drug Use Recreational Drug Use: No - Living Situation & Occupation Living situation: Reports: single, with family (2 kids) Occupation: unemployed ED ROS GENERAL - Review of Systems Review Of Systems: See Below Constitutional: Reports: no symptoms. Denies: fever, chills, diaphoresis Respiratory: Reports: No Symptoms. Denies: Shortness of Breath, Cough Cardiovascular: Reports: No symptoms. Denies: Chest pain, Dyspnea on exertion, Lightheadedness, Syncope GI/Abdominal: Reports: Abdominal pain, Diarrhea, Hematemesis, Nausea, Vomiting. Denies: Black stool, Bloody stool, Constipation, Distension : Reports: no symptoms. Denies: dysuria, flank pain, frequency ED EXAM, GI/ABD - Physical Exam Exam: See Below Exam Limited By: No limitations General Appearance: alert, moderate distress, obese Throat/Mouth: Normal inspection, Normal oropharynx Respiratory/Chest: no respiratory distress, lungs clear, normal breath sounds, no accessory muscle use Cardiovascular: regular rate, rhythm, no murmur GI/Abdominal: normal bowel sounds, soft, no organomegaly, no distention, tenderness (epigastric ). No: guarding, rebound, rigidity, Crawley's sign Neurological: alert, oriented, normal cognition Psychiatric: anxious Course - Vital Signs Last Recorded V/S: Last Vital Signs Temp 97.6 F 12/16/16 11:16 Pulse 83 12/16/16 14:40 Resp 16 12/16/16 14:40 BP 106/78 12/16/16 14:40 Pulse Ox 97 12/16/16 14:40 - Orders/Labs/Meds Orders: Active Orders 24 hr Category Date Time Status Peripheral IV Care [RC] . DIRECTED Care 12/16/16 11:50 Active Peripheral IV Insertion Adult [OM.PC] Stat Oth 12/16/16 11:49 Ordered Labs: Laboratory Tests 12/16/16 12/16/16 12/16/16 Range/Units 12:00 12:00 12:00 WBC 8.69 (3.98-10.04) K/mm3 RBC 4.11 (3.98-5.22) M/mm3 Hgb 12.7 (11.2-15.7) gm/L Hct 39.9 (34.1-44.9) % MCV 97.1 H (79.4-94.8) fl MCH 30.9 (25.6-32.2) pg MCHC 31.8 L (32.2-35.5) g/dl RDW Std Deviation 48.4 H (36.4-46.3) fL Plt Count 287 (182-369) K/mm3 MPV 9.1 L (9.4-12.3) fl Neut % (Auto) 64.7 (34.0-71.1) % Lymph % (Auto) 23.6 (19.3-51.7) % [place] % (Auto) 7.6 (4.7-12.5) % Eos % (Auto) 2.5 (0.7-5.8) Baso % (Auto) 0.7 (0.1-1.2) % Neut # (Auto) 5.62 (1.56-6.13) K/mm3 Lymph # (Auto) 2.05 (1.18-3.74) K/mm3 Mcdonald # (Auto) 0.66 H (0.24-0.36) K/mm3 Eos # (Auto) 0.22 (0.04-0.36) K/mm3 Baso # (Auto) 0.06 (0.01-0.08) K/mm3 Sodium 137 (136-145) mEq/L Potassium 4.0 (3.5-5.1) mEq/L Chloride 102 (98-107) mEq/L Carbon Dioxide 24 (21-32) mEq/L Anion Gap 15.0 (5-15) BUN 8 (7-18) mg/dL Creatinine 0.9 (0.55-1.02) mg/dL Est Cr Clr Drug Dosing 72.17 mL/min Estimated GFR (MDRD) > 60 (>60) mL/min BUN/Creatinine Ratio 8.9 L (14-18) Glucose 107 H (74-106) mg/dL Calcium 9.0 (8.5-10.1) mg/dL Total Bilirubin 0.3 (0.2-1.0) mg/dL AST 21 (15-37) U/L ALT 64 H (14-59) U/L Alkaline Phosphatase 78 (46-116) U/L C-Reactive Protein 2.3 H* (<1.0) mg/dL Total Protein 6.9 (6.4-8.2) g/dl Albumin 3.6 (3.4-5.0) g/dl Globulin 3.3 gm/dL Albumin/Globulin Ratio 1.1 (1-2) Lipase 177 (73-393) U/L Urine Color (Yellow) Urine Appearance (Clear) Urine pH (5.0-8.0) Ur Specific [place] (1.005-1.030) Urine Protein (Negative) Urine Glucose (UA) (Negative) Urine Ketones (Negative) Urine Occult Blood (Negative) Urine Nitrite (Negative) Urine Bilirubin (Negative) Urine Urobilinogen (0.2-1.0) Ur Leukocyte Esterase (Negative) Urine RBC (0-5) /hpf Urine WBC (0-5) /hpf Ur Epithelial Cells (0-5) /hpf Urine Bacteria (FEW) /hpf Urine Mucus (FEW) /hpf H. pylori IgG Antibody Negative (NEGATIVE) 12/16/16 Range/Units 12:40 WBC (3.98-10.04) K/mm3 RBC (3.98-5.22) M/mm3 Hgb (11.2-15.7) gm/L Hct (34.1-44.9) % MCV (79.4-94.8) fl MCH (25.6-32.2) pg MCHC (32.2-35.5) g/dl RDW Std Deviation (36.4-46.3) fL Plt Count (182-369) K/mm3 MPV (9.4-12.3) fl Neut % (Auto) (34.0-71.1) % Lymph % (Auto) (19.3-51.7) % [place] % (Auto) (4.7-12.5) % Eos % (Auto) (0.7-5.8) Baso % (Auto) (0.1-1.2) % Neut # (Auto) (1.56-6.13) K/mm3 Lymph # (Auto) (1.18-3.74) K/mm3 [place] # (Auto) (0.24-0.36) K/mm3 Eos # (Auto) (0.04-0.36) K/mm3 Baso # (Auto) (0.01-0.08) K/mm3 Sodium (136-145) mEq/L Potassium (3.5-5.1) mEq/L Chloride (98-107) mEq/L Carbon Dioxide (21-32) mEq/L Anion Gap (5-15) BUN (7-18) mg/dL Creatinine (0.55-1.02) mg/dL Est Cr Clr Drug Dosing mL/min Estimated GFR (MDRD) (>60) mL/min BUN/Creatinine Ratio (14-18) Glucose (74-106) mg/dL Calcium (8.5-10.1) mg/dL Total Bilirubin (0.2-1.0) mg/dL AST (15-37) U/L ALT (14-59) U/L Alkaline Phosphatase (46-116) U/L C-Reactive Protein (<1.0) mg/dL Total Protein (6.4-8.2) g/dl Albumin (3.4-5.0) g/dl Globulin gm/dL Albumin/Globulin Ratio (1-2) Lipase (73-393) U/L Urine Color Yellow (Yellow) Urine Appearance Clear (Clear) Urine pH 5.5 (5.0-8.0) Ur Specific [place] 1.015 (1.005-1.030) Urine Protein Negative (Negative) Urine Glucose (UA) Negative (Negative) Urine Ketones Negative (Negative) Urine Occult Blood Negative (Negative) Urine Nitrite Negative (Negative) Urine Bilirubin Negative (Negative) Urine Urobilinogen 0.2 (0.2-1.0) Ur Leukocyte Esterase Negative (Negative) Urine RBC Not seen (0-5) /hpf Urine WBC 0-5 (0-5) /hpf Ur Epithelial Cells 0-5 (0-5) /hpf Urine Bacteria Few (FEW) /hpf Urine Mucus Not seen (FEW) /hpf H. pylori IgG Antibody (NEGATIVE) Meds: Medications Discontinued Medications Generic Name Dose Route Start Last Admin Trade Name Freq PRN Reason Stop Dose Admin Hydromorphone HCl 1 mg 12/16/16 11:50 12/16/16 12:05 Dilaudid IVPUSH 12/16/16 11:51 1 mg ONETIME ONE Administration Hydromorphone HCl 1 mg 12/16/16 14:25 12/16/16 14:29 Dilaudid IVPUSH 12/16/16 14:26 1 mg ONETIME ONE Administration Sodium Chloride 1,000 mls @ 999 mls/hr 12/16/16 11:50 12/16/16 12:03 Normal Saline IV 12/16/16 12:50 999 mls/hr ONETIME ONE Administration Ondansetron HCl 4 mg 12/16/16 11:50 12/16/16 12:08 Zofran Odt PO 12/16/16 11:51 4 mg ONETIME ONE Administration Sodium Chloride 10 ml 12/16/16 11:50 12/16/16 12:08 Saline Flush FLUSH 10 ml ASDIRECTED PRN Administration Keep Vein Open - Re-Assessments/Exams Free Text/Narrative Re-Assessment/Exam: CBC is normal CRP is mildly elevated at 2.3. This is slightly up from her previous visits. CMP and lipase are normal UA is normal. H Pylori is negative Again, CT of abdomen/pelvis from earlier today was reviewed and is negative for acute findings. Dr. Escobedo's interpretation is as follows: 1. Fatty infiltration of the liver 2. Multiple cysts on the kidneys - stable from previous exams 3. Other incidental findings. No acute findings Patient was treated symptomatically with IV fluids, zofran, and pain medication. She was informed of her lab and CT results. She has an appointment with Nancy Jarquin in 1 week. I was able to reschedule this for Tuesday. I also recommended that she see Dr. Coles to discuss EGD. She was educated on return precautions. She has zofran at home and was encouraged to take this as needed. At time of discharge, the patient requested pain medication prescription for oxycodone 15mg tabs. She said "This is what I usually take." When asked who prescribes these for her, she said her community service worker. However, she has not seen her community service worker to get a refill. She says her [employer] Driver gives her these pain medications because the weather here causes her "stent to get cold and cause pain." I will give her a small prescription for oxycodone 5mg tablets to get her by until she can see her PCP next week. She has a listed allergy to Tylenol and says it causes severe abdominal cramps. There is concern for drug seeking behavior. The patient said she had a ride home prior to administration of IV pain medication. She stated understanding that she cannot drive today after receiving pain medication. Nursing staff reported that they witnessed the patient get into her vehicle and drive away. Departure - Departure Time of Disposition: :51 Disposition: Home, Self-Care 01 Condition: fair Clinical Impression: Abdominal pain of unknown etiology Prescriptions: oxyCODONE 5 mg PO TID PRN #10 tablet PRN Reason: Pain Instructions: Abdominal Pain, Adult, [id number] Referrals: Nancy Jarquin PA-C [Primary Care Provider] - Forms: ED Department Discharge Additional Instructions: Follow-up with Nancy Jarquin, PAC scheduled for Tuesday12/20/16 at 7:30am. Call [phone] if you need to reschedule Take your Zofran as prescribed Avoid caffeine, spicy foods, alcohol Drink plenty of clear fluids Return to ER if your symptoms worsen - My Orders Last 24 Hours: My Active Orders 12/16/16 11:49 Peripheral IV Insertion Adult [OM.PC] Stat 12/16/16 11:50 Peripheral IV Care [RC] . DIRECTED - Assessment/Plan Last 24 Hours: My Active Orders 12/16/16 11:49 Peripheral IV Insertion Adult [OM.PC] Stat 12/16/16 11:50 Peripheral IV Care [RC] . DIRECTED
[2016-12-16 14:50] VITALS: BP 106/78
== END 2016-12-16 15:10 | disposition home or self-care (01) ==
LOC: JD.ED 11:09
DX: R10.13 Epigastric pain (principal); I25.10 Atherosclerotic heart disease of native coronary artery without angina pectoris; I10 Essential (primary) hypertension; Z95.5 Presence of coronary angioplasty implant and graft; I25.2 Old myocardial infarction; K21.9 Gastro-esophageal reflux disease without esophagitis; F32.9 Major depressive disorder, single episode, unspecified; F41.9 Anxiety disorder, unspecified; Z79.82 Long term (current) use of aspirin; Z79.899 Other long term (current) drug therapy; Z88.2 Allergy status to sulfonamides; Z88.6 Allergy status to analgesic agent; F17.200 Nicotine dependence, unspecified, uncomplicated
CPT/HCPCS: 36415; 80053; 81001; 83690; 85025; 86140; 86677; 96361; 96374; 96376; 99284; A9270; J1170; J7040; J7050

== ENCOUNTER 2016-12-18 00:53 | Emergency (ER) | payer MEDICAID ==
[2016-12-18 01:04] VITALS: BP 108/62
--- NOTE | 2016-12-18 01:27 | EDM.PDOC ---
ED HPI GI/ABDOMINAL - General Chief Complaint: Abdominal Pain Stated Complaint: ABDOMINAL PAIN Time Seen by Provider: 12/18/16 01:02 Source of Information: Reports: Patient History Limitations: Reports: No limitations - History of Present Illness INITIAL COMMENTS - FREE TEXT/NARRATIVE: This is a 36-year-old female. She has been to the ER several times for a workup of her abdominal pain. She was just here on the for her abdominal she's had 2 CAT scans in the last 2 months she's had a ultrasound of her gallbladder and a HIDA scan all of which were normal. She has an appointment on Tuesday with Dr. Coles for further evaluation of her abdominal pain. She does have a history of ulcerative colitis. She states she has not had a problem with it for the last 3 years but now over the last couple of months it feels like maybe it's coming back. She has a history of nausea and vomiting when she eats and as soon as she eats she has to go to the bathroom often times diarrhea. She denies any blood in her stool. 2 days ago she was seen and worked up with a CAT scan that was negative and all her blood work returned normal other than a slightly elevated CRP. She comes back tonight because of this constant abdominal pain. She was given some oxycodone 2 nights ago and she says it takes 15 mg to make the pain go away. 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 She denies any fever or chills denies any other acute symptoms at this time. - Related Data Allergies/ADRs: Allergies Allergy/AdvReac Type Severity Reaction Status Date / Time ondansetron Allergy Cannot Verified 12/18/16 00:59 Remember acetaminophen [From Tylenol] AdvReac Abdominal Verified 12/18/16 00:59 Cramps lorazepam [From Ativan] AdvReac Tachycardia Verified 12/18/16 00:59 Sulfa (Sulfonamide AdvReac Diarrhea Verified 12/18/16 00:59 Antibiotics) sulfacetamide AdvReac Abdominal Verified 12/18/16 00:59 Pain Home Meds: Home Meds Clopidogrel [Plavix] 75 mg PO BEDTIME 09/12/16 [History] Aspirin [Ecotrin] 81 mg PO DAILY 11/05/16 [History] Ondansetron [Zofran ODT] 1 tab PO Q8H PRN #10 tab.dis 11/09/16 [Rx] ALPRAZolam [Xanax] 1 mg PO BID 12/16/16 [History] oxyCODONE 5 mg PO Q6H PRN 12/18/16 [History] Past Medical History Cardiovascular History: Reports: CAD, Hypertension, [place] Other Cardiovascular History: aortic dissection Gastrointestinal History: Reports: GERD, Inflammatory bowel disease 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 JUDGE History: Reports: Endometriosis, Other OB/BYN History: tubes tied Psychiatric History: Reports: ADD, Anxiety, Depression, PTSD - Past Surgical History HEENT Surgical History: Reports: Eye surgery Cardiovascular Surgical History: Reports: Coronary artery stent GI Surgical History: Reports: Colonoscopy, EGD Female Surgical History: Reports: section, D&C, Other (see below) Other Female Surgeries/Procedures: scar tissue removed Social & Family History - Family History Family Medical History: Noncontributory - Tobacco Use Smoking Status *Q: Current Every Day Smoker Years of Tobacco use: 11 Packs/Tins Daily: 0.1 Used Tobacco, but Quit: No - Caffeine Use Caffeine Use: Reports: Coffee - Recreational Drug Use Recreational Drug Use: No - Living Situation & Occupation Living situation: Reports: single, with family (2 kids) Occupation: unemployed ED ROS GENERAL - Review of Systems Review Of Systems: See Below Constitutional: Denies: fever, chills HEENT: Reports: No symptoms Respiratory: Reports: No Symptoms Cardiovascular: Reports: No symptoms Endocrine: Reports: no symptoms GI/Abdominal: Reports: Abdominal pain, Diarrhea, Nausea, Vomiting : Reports: no symptoms Musculoskeletal: Reports: no symptoms Skin: Reports: no symptoms Neurological: Reports: No Symptoms Psychiatric: Reports: No symptoms Hematologic/Lymphatic: Reports: no symptoms ED EXAM, GI/ABD - Physical Exam Exam: See Below Exam Limited By: No limitations General Appearance: alert, WD/WN, no apparent distress Eyes: bilateral: normal appearance Ears: normal external exam Nose: normal inspection Throat/Mouth: Normal lips, Normal voice Head: normocephalic Neck: supple Respiratory/Chest: no respiratory distress, lungs clear, normal breath sounds Cardiovascular: regular rate, rhythm, no murmur GI/Abdominal: normal bowel sounds, soft, no distention. No: distention, guarding, rebound, rigidity, McBurney's sign, Rcawley's sign Back Exam: full range of motion Extremities: normal inspection, normal range of motion Neurological: alert, oriented Psychiatric: normal affect, normal mood Skin Exam: Warm, Dry Course - Vital Signs Last Recorded V/S: Last Vital Signs Temp 98.6 F 12/18/16 01:01 Pulse 101 H 12/18/16 01:01 Resp 18 12/18/16 01:01 BP 108/62 12/18/16 01:01 Pulse Ox 97 12/18/16 01:01 - Orders/Labs/Meds Orders: Active Orders 24 hr Category Date Time Status HYDROmorphone [Dilaudid] Med 12/18/16 02:16 Once 1 mg IM ONETIME ONE Medication Orders Hydromorphone HCl (Dilaudid) 1 mg IM ONETIME ONE Stop: 12/18/16 02:17 Labs: Laboratory Tests 12/18/16 12/18/16 Range/Units 01:35 01:35 WBC 8.86 (3.98-10.04) K/mm3 RBC 3.85 L (3.98-5.22) M/mm3 Hgb 12.0 (11.2-15.7) gm/L Hct 37.5 (34.1-44.9) % MCV 97.4 H (79.4-94.8) fl MCH 31.2 (25.6-32.2) pg MCHC 32.0 L (32.2-35.5) g/dl RDW Std Deviation 47.1 H (36.4-46.3) fL Plt Count 277 (182-369) K/mm3 MPV 9.2 L (9.4-12.3) fl Neut % (Auto) 64.7 (34.0-71.1) % Lymph % (Auto) 25.6 (19.3-51.7) % [place] % (Auto) 6.2 (4.7-12.5) % Eos % (Auto) 2.4 (0.7-5.8) Baso % (Auto) 0.5 (0.1-1.2) % Neut # (Auto) 5.74 (1.56-6.13) K/mm3 Lymph # (Auto) 2.27 (1.18-3.74) K/mm3 [place] # (Auto) 0.55 H (0.24-0.36) K/mm3 Eos # (Auto) 0.21 (0.04-0.36) K/mm3 Baso # (Auto) 0.04 (0.01-0.08) K/mm3 Sodium 138 (136-145) mEq/L Potassium 3.6 (3.5-5.1) mEq/L Chloride 103 (98-107) mEq/L Carbon Dioxide 26 (21-32) mEq/L Anion Gap 12.6 (5-15) BUN 6 L (7-18) mg/dL Creatinine 0.9 (0.55-1.02) mg/dL Est Cr Clr Drug Dosing 72.17 mL/min Estimated GFR (MDRD) > 60 (>60) mL/min BUN/Creatinine Ratio 6.7 L (14-18) Glucose 97 (74-106) mg/dL Calcium 8.6 (8.5-10.1) mg/dL Total Bilirubin 0.2 (0.2-1.0) mg/dL AST 20 (15-37) U/L ALT 51 (14-59) U/L Alkaline Phosphatase 74 (46-116) U/L Total Protein 6.5 (6.4-8.2) g/dl Albumin 3.5 (3.4-5.0) g/dl Globulin 3.0 gm/dL Albumin/Globulin Ratio 1.2 (1-2) Meds: Medications Generic Name Dose Route Start Last Admin Trade Name Freq PRN Reason Stop Dose Admin Hydromorphone HCl 1 mg 12/18/16 02:16 Dilaudid IM 12/18/16 02:17 ONETIME ONE - Re-Assessments/Exams Free Text/Narrative Re-Assessment/Exam: 12/18/16 01:40 The patient is requesting that I face time with her mother so that she can do something for pain. Apparently the mother dropped her off in the ER and now is taking care of her children who were sleeping. I explained to her that the policy is we need to have someone here in body form before we give pain medications. I explained to her I more than happy to give her a shot for pain once there is someone here. We are going to recheck some blood work to make sure nothing is changed or abnormal from the last time she was here and wants her mother comes to pick her up all be happy to give her something for pain. 12/18/16 02:10 The patient's son has come to the ER by way of taxi. I have thus learn from him that the patient's car is sitting out in the parking lot and that she drove herself to the ER and that her mother did not drop her off. So the patient was not honest with me regarding how she got here. 12/18/16 02:18 Patient complains of vomiting at home all the time. But she has not vomited a single time in the ER. She has Zofran and she has Phenergan at home. Departure - Departure Time of Disposition: :17 Disposition: Home, Self-Care 01 Condition: fair Clinical Impression: Abdominal pain Qualifiers: Abdominal location: periumbilical Qualified Code(s): R10.33 - Periumbilical pain Diarrhea Qualifiers: Diarrhea type: unspecified type Qualified Code(s): R19.7 - Diarrhea, unspecified Nausea & vomiting Qualifiers: Vomiting type: unspecified Vomiting Intractability: non-intractable Qualified Code(s): R11.2 - Nausea with vomiting, unspecified Referrals: Nancy Jarquin PA-C [Primary Care Provider] - Lenin Coles MD [Physician] - Forms: ED Department Discharge Additional Instructions: Continue to take frequent sips of water to stay hydrated, do not drink sodas, coffee, or any caffeinated beverages since it will aggravate her abdominal symptoms, use the Zofran or the Phenergan as needed for nausea, call Dr. Coles 's office on Tuesday to see if you can get an appointment sooner than Tuesday since he will have some cancellations, you need to have a colonoscopy and upper endoscopy to determine the cause of your abdominal pain, return to the ER if needed - My Orders Last 24 Hours: My Active Orders 12/18/16 02:16 HYDROmorphone [Dilaudid] 1 mg IM ONETIME ONE - Assessment/Plan Last 24 Hours: My Active Orders 12/18/16 02:16 HYDROmorphone [Dilaudid] 1 mg IM ONETIME ONE
[2016-12-18] MEDS ORDERED: HYDROmorphone 1 MG/ML Syringe IM ONE (02:16)
== END 2016-12-18 02:41 | disposition home or self-care (01) ==
LOC: JD.ED 00:53
DX: R10.33 Periumbilical pain (principal); R19.7 Diarrhea, unspecified; R11.2 Nausea with vomiting, unspecified; I25.10 Atherosclerotic heart disease of native coronary artery without angina pectoris; I10 Essential (primary) hypertension; F17.210 Nicotine dependence, cigarettes, uncomplicated; K21.9 Gastro-esophageal reflux disease without esophagitis; I25.2 Old myocardial infarction; F41.9 Anxiety disorder, unspecified; F32.9 Major depressive disorder, single episode, unspecified; Z98.890 Other specified postprocedural states; Z88.2 Allergy status to sulfonamides; Z88.8 Allergy status to other drugs, medicaments and biological substances; Z79.82 Long term (current) use of aspirin; Z79.899 Other long term (current) drug therapy
CPT/HCPCS: 36415; 80053; 85025; 96372; 99284; J1170

== ENCOUNTER 2016-12-18 08:11 | Emergency (ER) | payer MEDICAID ==
[2016-12-18 08:23] VITALS: BP 126/85
[2016-12-18] MEDS ORDERED: Metoclopramide 10 MG/2 ML SDV IVPUSH ONE (08:41)
[2016-12-18] MEDS ORDERED: Sodium Chloride 0.9% 10 ML Syringe FLUSH PRN (08:41)
[2016-12-18] MEDS ORDERED: HYDROmorphone 1 MG/ML Syringe IVPUSH ONE (08:42)
--- NOTE | 2016-12-18 09:00 | EDM.PDOC ---
ED HPI GI/ABDOMINAL - General Chief Complaint: Abdominal Pain Stated Complaint: ABDOMINAL PAIN/VOMITING Time Seen by Provider: 12/18/16 08:29 Source of Information: Reports: Patient History Limitations: Reports: No limitations - History of Present Illness INITIAL COMMENTS - FREE TEXT/NARRATIVE: The patient presents with generalized abdominal pain, nausea, vomiting and diarrhea. This is the 3rd visit in the past 2 days. She was hear early this morning. The patient has had abdominal pain for the past month. She saw her provider and had an extensive work up to include an US of her gallbladder that showed a fatty liver, a HIDA scan that was negative and a CT of her abdomen and pelvis that shows a fatty liver. She has had an EGD and colonoscopy that showed ulcerative colitis. She is scheduled to see Dr Coles next week for a consult for EGD and colonoscopy. She is still having symptoms today and she feels that she is dehydrated. She had an OR in the past and she has a stent. She says she will get chest pain at times. Timing/Duration: Reports: Week(s): (2) Location: generalized Quality: Reports: stabbing Severity: severe Context: Denies: sick contact, bad/questionable food, out of country travel, recent surgery, recent trauma, lifting, activity/exercise Associated Symptoms (-Female): Reports: diarrhea, nausea/vomiting. Denies: fever/chills - Related Data Allergies/ADRs: Allergies Allergy/AdvReac Type Severity Reaction Status Date / Time ondansetron Allergy Cannot Verified 12/18/16 08:24 Remember acetaminophen [From Tylenol] AdvReac Abdominal Verified 12/18/16 08:24 Cramps lorazepam [From Ativan] AdvReac Tachycardia Verified 12/18/16 08:24 Sulfa (Sulfonamide AdvReac Diarrhea Verified 12/18/16 08:24 Antibiotics) sulfacetamide AdvReac Abdominal Verified 12/18/16 08:24 Pain Home Meds: Home Meds Clopidogrel [Plavix] 75 mg PO BEDTIME 09/12/16 [History] Aspirin [Ecotrin] 81 mg PO DAILY 11/05/16 [History] Ondansetron [Zofran ODT] 1 tab PO Q8H PRN #10 tab.dis 11/09/16 [Rx] ALPRAZolam [Xanax] 1 mg PO BID 12/16/16 [History] Biotin 1 tab PO DAILY 12/18/16 [History] oxyCODONE 5 mg PO Q6H PRN 12/18/16 [History] oxyCODONE ER [OxyCONTIN] 10 mg PO Q12HR PRN #20 tab.er 12/18/16 [Rx] Past Medical History Cardiovascular History: Reports: CAD, Hypertension, [place] Other Cardiovascular History: aortic dissection Gastrointestinal History: Reports: GERD, Inflammatory bowel disease 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: Reports: Endometriosis, Other OB/BYN History: tubes tied Psychiatric History: Reports: ADD, Anxiety, Depression, PTSD - Past Surgical History HEENT Surgical History: Reports: Eye surgery Cardiovascular Surgical History: Reports: Coronary artery stent GI Surgical History: Reports: Colonoscopy, EGD Female Surgical History: Reports: section, D&C, Tubal ligation, Other (see below) Other Female Surgeries/Procedures: scar tissue removed Social & Family History - Family History Family Medical History: Noncontributory - Tobacco Use Smoking Status *Q: Current Every Day Smoker Years of Tobacco use: 20 Packs/Tins Daily: 0.2 Used Tobacco, but Quit: No - Caffeine Use Caffeine Use: Reports: Coffee - Recreational Drug Use Recreational Drug Use: No - Living Situation & Occupation Living situation: Reports: single, with family (2 kids) Occupation: unemployed ED ROS GENERAL - Review of Systems Review Of Systems: See Below Constitutional: Reports: no symptoms HEENT: Reports: No symptoms Respiratory: Reports: No Symptoms Cardiovascular: Reports: Chest pain Endocrine: Reports: no symptoms GI/Abdominal: Reports: Abdominal pain, Diarrhea, Nausea, Vomiting : Reports: no symptoms Musculoskeletal: Reports: no symptoms Skin: Reports: no symptoms Neurological: Reports: No Symptoms ED EXAM, GI/ABD - Physical Exam Exam: See Below Exam Limited By: No limitations General Appearance: alert, no apparent distress Ears: normal external exam Nose: normal inspection Head: atraumatic, normocephalic Neck: normal inspection Respiratory/Chest: no respiratory distress, lungs clear, normal breath sounds Cardiovascular: regular rate, rhythm, no edema, no murmur GI/Abdominal: soft, no organomegaly, no mass, tenderness (Moderate generalized tenderness) Back Exam: normal inspection Extremities: normal inspection Course - Vital Signs Last Recorded V/S: Last Vital Signs Temp 97.2 F 12/18/16 08:21 Pulse 94 12/18/16 08:21 Resp 16 12/18/16 08:21 BP 126/85 12/18/16 08:21 Pulse Ox 96 12/18/16 08:21 - Orders/Labs/Meds Orders: Active Orders 24 hr Category Date Time Status Peripheral IV Care [RC] . DIRECTED Care 12/18/16 08:41 Active Abdomen Series w Chest 1V [CR] Stat Exams 12/18/16 08:41 Taken Sodium Chloride 0.9% [Normal Saline] 1,000 ml Med 12/18/16 09:56 Active IV ONETIME Sodium Chloride 0.9% [Saline Flush] Med 12/18/16 08:41 Active 10 ml FLUSH ASDIRECTED PRN ED Antiemetic Medication Reflex [OM.PC] Stat Oth 12/18/16 08:41 Ordered Peripheral IV Insertion Adult [OM.PC] Stat Oth 12/18/16 08:41 Ordered Medication Orders Sodium Chloride (Normal Saline) 1,000 mls @ 1,000 mls/hr IV ONETIME ONE Stop: 12/18/16 10:55 Last Admin: 12/18/16 10:00 Dose: 1,000 mls/hr Sodium Chloride (Saline Flush) 10 ml FLUSH ASDIRECTED PRN PRN Reason: Keep Vein Open Last Admin: 12/18/16 09:11 Dose: 10 ml Labs: Laboratory Tests 12/18/16 12/18/16 12/18/16 Range/Units 09:00 09:00 09:00 WBC 9.30 (3.98-10.04) K/mm3 RBC 4.01 (3.98-5.22) M/mm3 Hgb 12.6 (11.2-15.7) gm/L Hct 39.0 (34.1-44.9) % MCV 97.3 H (79.4-94.8) fl MCH 31.4 (25.6-32.2) pg MCHC 32.3 (32.2-35.5) g/dl RDW Std Deviation 46.9 H (36.4-46.3) fL Plt Count 286 (182-369) K/mm3 MPV 9.0 L (9.4-12.3) fl Neut % (Auto) 63.8 (34.0-71.1) % Lymph % (Auto) 25.8 (19.3-51.7) % [place] % (Auto) 6.7 (4.7-12.5) % Eos % (Auto) 2.6 (0.7-5.8) Baso % (Auto) 0.3 (0.1-1.2) % Neut # (Auto) 5.94 (1.56-6.13) K/mm3 Lymph # (Auto) 2.40 (1.18-3.74) K/mm3 [place] # (Auto) 0.62 H (0.24-0.36) K/mm3 Eos # (Auto) 0.24 (0.04-0.36) K/mm3 Baso # (Auto) 0.03 (0.01-0.08) K/mm3 Sodium 138 (136-145) mEq/L Potassium 3.2 L (3.5-5.1) mEq/L Chloride 102 (98-107) mEq/L Carbon Dioxide 25 (21-32) mEq/L Anion Gap 14.2 (5-15) BUN 4 L (7-18) mg/dL Creatinine 0.9 (0.55-1.02) mg/dL Est Cr Clr Drug Dosing TNP Estimated GFR (MDRD) > 60 (>60) mL/min BUN/Creatinine Ratio 4.4 L (14-18) Glucose 104 (74-106) mg/dL Calcium 8.6 (8.5-10.1) mg/dL Total Bilirubin 0.3 (0.2-1.0) mg/dL AST 23 (15-37) U/L ALT 55 (14-59) U/L Alkaline Phosphatase 74 (46-116) U/L Troponin I < 0.017 (0.00-0.056) ng/mL Total Protein 7.0 (6.4-8.2) g/dl Albumin 3.6 (3.4-5.0) g/dl Globulin 3.4 gm/dL Albumin/Globulin Ratio 1.1 (1-2) Lipase 112 (73-393) U/L HCG, Qual Negative (NEGATIVE) Meds: Medications Generic Name Dose Route Start Last Admin Trade Name Freq PRN Reason Stop Dose Admin Sodium Chloride 1,000 mls @ 1,000 mls/hr 12/18/16 09:56 12/18/16 10:00 Normal Saline IV 12/18/16 10:55 1,000 mls/hr ONETIME ONE Administration Sodium Chloride 10 ml 12/18/16 08:41 12/18/16 09:11 Saline Flush FLUSH 10 ml ASDIRECTED PRN Administration Keep Vein Open Discontinued Medications Generic Name Dose Route Start Last Admin Trade Name Tre PRN Reason Stop Dose Admin Hydromorphone HCl 1 mg 12/18/16 08:42 12/18/16 09:09 Dilaudid IVPUSH 12/18/16 08:43 1 mg ONETIME ONE Administration Hydromorphone HCl 0.5 mg 12/18/16 09:59 12/18/16 10:04 Dilaudid IVPUSH 12/18/16 10:00 0.5 mg ONETIME ONE Administration Sodium Chloride Confirm 12/18/16 09:59 12/18/16 10:01 Normal Saline Administered 12/18/16 10:00 Not Given Dose 1,000 mls @ as directed .ROUTE .STK-MED ONE Metoclopramide HCl 10 mg 12/18/16 08:41 12/18/16 09:13 Reglan IVPUSH 12/18/16 08:42 Not Given ONETIME ONE Ondansetron HCl 4 mg 12/18/16 09:05 12/18/16 09:10 Zofran Odt PO 12/18/16 09:06 4 mg ONETIME ONE Administration - Re-Assessments/Exams Free Text/Narrative Re-Assessment/Exam: 12/18/16 09:00 I ordered an IV NS 1L bolus, reglan 10mg IV, dilaudid 1mg IV, labs, UA, abdominal series x-rays with chest, and EKG. 12/18/16 09:05 The patient did not want IV raglan. She would like oral ODT zofran. She is not allergic to zofran in that form. 12/18/16 10:31 Her CBC and CMP look good. Her HCG is negative. I will give her some oxycontin for home. She is following up with Dr Coles next week. She did not want to go on anything for her ulcerative colitis. This could be what is causing her pain. Departure - Departure Time of Disposition: 10:35 Disposition: Home, Self-Care 01 Condition: good Clinical Impression: Abdominal pain of unknown etiology Nausea & vomiting Qualifiers: Vomiting type: unspecified Vomiting Intractability: non-intractable Qualified Code(s): R11.2 - Nausea with vomiting, unspecified Prescriptions: oxyCODONE ER [OxyCONTIN] 10 mg PO Q12HR PRN #20 tab.er PRN Reason: Pain Referrals: Nancy Jarquin PA-C [Primary Care Provider] - Forms: ED Department Discharge Additional Instructions: Follow up with Dr Coles. Please return if you are worse. - My Orders Last 24 Hours: My Active Orders 12/18/16 08:41 Peripheral IV Care [RC] . DIRECTED Abdomen Series w Chest 1V [CR] Stat Sodium Chloride 0.9% [Saline Flush] 10 ml FLUSH ASDIRECTED PRN ED Antiemetic Medication Reflex [OM.PC] Stat Peripheral IV Insertion Adult [OM.PC] Stat 12/18/16 09:56 Sodium Chloride 0.9% [Normal Saline] 1,000 ml IV ONETIME - Assessment/Plan Last 24 Hours: My Active Orders 12/18/16 08:41 Peripheral IV Care [RC] . DIRECTED Abdomen Series w Chest 1V [CR] Stat Sodium Chloride 0.9% [Saline Flush] 10 ml FLUSH ASDIRECTED PRN ED Antiemetic Medication Reflex [OM.PC] Stat Peripheral IV Insertion Adult [OM.PC] Stat 12/18/16 09:56 Sodium Chloride 0.9% [Normal Saline] 1,000 ml IV ONETIME
[2016-12-18] MEDS ORDERED: Ondansetron 4 MG Tab.DIS PO ONE (09:05)
[2016-12-18] MEDS ORDERED: Sodium Chloride 0.9% 1,000 ML IV ONE (09:56)
[2016-12-18] MEDS ORDERED: Sodium Chloride 0.9% 1,000 ML ONE (09:59)
[2016-12-18] MEDS ORDERED: HYDROmorphone 0.5 MG/0.5 ML Syringe IVPUSH ONE (09:59)
--- NOTE | 2016-12-19 09:36 | CR ---
Abdominal series: Supine and upright views of the abdomen were obtained as well as frontal view of the chest. Comparison: Previous chest x-ray of 09/12/16 is available. Heart size and mediastinum are within normal limits for technique. Lungs are clear. No free air is seen. Contrast is identified within the colon from previous CT study performed 2 days earlier. Surgical clips are noted within the pelvis. Calcifications within the pelvis are compatible phleboliths. Impression: 1. Incidental findings. Nothing acute is identified on abdominal series. Diagnostic code #2
== END 2016-12-18 10:47 | disposition home or self-care (01) ==
LOC: JD.ED 08:11
DX: R11.2 Nausea with vomiting, unspecified (principal); R10.84 Generalized abdominal pain; I25.10 Atherosclerotic heart disease of native coronary artery without angina pectoris; I10 Essential (primary) hypertension; K21.9 Gastro-esophageal reflux disease without esophagitis; F41.9 Anxiety disorder, unspecified; F32.9 Major depressive disorder, single episode, unspecified; F17.210 Nicotine dependence, cigarettes, uncomplicated; Z88.8 Allergy status to other drugs, medicaments and biological substances; Z88.2 Allergy status to sulfonamides; Z79.82 Long term (current) use of aspirin; Z79.899 Other long term (current) drug therapy
CPT/HCPCS: 36415; 74022; 80053; 83690; 84484; 84703; 85025; 96361; 96374; 96376; 99284; A9270; J1170; J7040; J7050